=== PATIENT | male | born 1960 | race Caucasian/White ===

== ENCOUNTER 2018-10-17 06:14 | Day surgery (SDC) | payer MEDICARE, OTHER ==
[2018-10-17] MEDS ORDERED: PROPOFOL 20 ML (08:41)
== END 2018-10-17 11:28 | disposition home or self-care (01) ==
LOC: GIL 06:14
DX: K29.00 Acute gastritis without bleeding (principal); I10 Essential (primary) hypertension; E03.9 Hypothyroidism, unspecified; F79 Unspecified intellectual disabilities
CPT/HCPCS: 43239; 88305